=== PATIENT | female | born 1975 | race American Indian/Alaskan Native ===

== ENCOUNTER 2018-08-08 09:43 | Inpatient (IN) | payer OTHER ==
[2018-08-08] MEDS ORDERED: BICITRA PO SCH (10:47)
[2018-08-08] MEDS ORDERED: PEPCID IV SCH (10:47)
[2018-08-08] MEDS ORDERED: REGLAN IV SCH (10:47)
[2018-08-08] MEDS: LACTATED RINGERS 1,000 ML IV SCH ×2 (10:59→11:31)
[2018-08-08] MEDS ORDERED: PITOCin/NS 20 UNIT/1000ML DRIP 20 UNITS/1,000 ML BAG IV SCH ×2 (11:00→12:00)
[2018-08-08 11:04] LABS: Basophils # (Auto) 0.1 K/mm3 (0.0-0.1); Basophils % (Auto) 0.7 % (0.0-1.8); Eosinophils # (Auto) 0.1 K/mm3 (0.0-0.4); Eosinophils % (Auto) 1.3 % (0.0-4.3); Hematocrit 34.2 % (30.3-42.9); Hemoglobin 11.1 gm/dl (10.1-14.3); Lymphocytes % (Auto) 19.7 % (13.4-35.0); Mean Corpuscular HGB Conc 32 % (30-34); Mean Corpuscular Volume 89 fl (79-97); Monocytes # (Auto) 0.9 K/mm3 (0.0-0.8); Monocytes % (Auto) 8.4 % (0.0-7.3); Platelet Count 379 K/mm3 (140-440); Red Blood Count 3.84 M/mm3 (3.65-5.03); Red Cell Distribution Width 15.2 % (13.2-15.2)
[2018-08-08] MEDS ORDERED: SUBLIMAZE ONE (11:21)
[2018-08-08] MEDS ORDERED: ASTRAMORPH PF 10MG/10ML ONE (11:21)
--- NOTE | 2018-08-08 11:23 | History and Physical Report ---
History of Present Illness Date of examination: 08/08/18 Date of admission: 08/08/18 09:43 Chief complaint: previous History of present illness: 43y/o @ 38+2 weeks presents for a repeat delivery secondary to GDM and a prior classical . course also complicated by AMA, three prior deliveries, history of tobacco abuse, and +HSV II however the patient denies any recent prodrome. It was the recommendation from [facility] that the patient be delivered prior to 39 weeks. She denies leakage of fluid or vaginal bleeding. 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 Social history: , smoking - Obstetrical History Expected Date of Delivery: 08/20/18 Actual Gestation: 38 Week(s) 2 Day(s) : 6 Para: 3 Hx # Term Pregnancies: 3 Number of Pregnancies: 0 Spontaneous Abortions: 2 Induced : 0 Number of Living Children: 3 Medications and Allergies Allergies Allergy/AdvReac Type Severity Reaction Status Date / Time sumatriptan [From Imitrex] Allergy Anaphylaxis Verified 08/08/18 09:56 Home Medications Medication Instructions Recorded Confirmed Last Taken Type Vit,Calc76/Iron/Folic 1 each PO DAILY 08/08/18 08/08/18 Unknown History [Pnv 29-1 Tablet] Active Meds: Active Medications Citric Acid/Sodium Citrate (Bicitra) 30 ml PO ONCE OMID Stop: 08/08/18 23:48 Famotidine (Pepcid) 20 mg IV ONCE OMID Stop: 08/08/18 23:48 Lactated Ringer's (Lactated Ringers) 1,000 mls @ 2,250 mls/hr IV PREOP OMID Stop: 08/09/18 11:27 Last Admin: 08/08/18 10:59 Dose: 2,250 mls/hr Documented by: Oxytocin/Sodium Chloride (Pitocin/Ns 20 Unit/1000ml Drip) 20 units in 1,000 mls @ 0 mls/hr IV TITR OMID Metoclopramide HCl (Reglan) 10 mg IV ONCE OMID Review of Systems All systems: negative Genitourinary: no vaginal bleeding, no leakage of fluid, no contractions - Vital Signs Vital signs: Vital Signs Pulse BP 103 H 106/67 08/08/18 10:09 08/08/18 10:09 Temp Pulse Resp BP Pulse Ox 98.6 F 103 H 20 106/67 08/08/18 10:10 08/08/18 10:09 08/08/18 10:10 08/08/18 10:09 - Physical Exam Breasts: Positive: deferred Cardiovascular: Regular rate Lungs: Positive: Clear to auscultation Abdomen: Positive: normal appearance Results Result Diagrams: 08/08/18 10:45 Abnormal lab results 08/08/18 Range/Units 10:45 [place] % (Auto) 8.4 H (0.0-7.3) % [place] # 0.9 H (0.0-0.8) K/mm3 All other labs normal. Assessment and Plan - Patient Problems (1) History of classical section Current Visit: Yes Status: Acute Plan to address problem: proceed with repeat delivery patient declines tubal ligation (2) Advanced maternal age (AMA), 40 years or greater Current Visit: Yes Status: Acute (3) Gestational diabetes Current Visit: Yes Status: Acute
[2018-08-08] MEDS ORDERED: ZOFRAN IV PRN ×2 (11:29→13:12)
[2018-08-08] MEDS ORDERED: MORPHINE IV PRN (11:29)
[2018-08-08] MEDS ORDERED: IBUPROFEN PO PRN (11:29)
[2018-08-08] MEDS ORDERED: TUCKS PAD TP PRN (11:29)
[2018-08-08] MEDS ORDERED: NARCAN 0.4 MG/1 ML IV PRN ×2 (11:29→13:12)
[2018-08-08] MEDS ORDERED: LANSINOH TP PRN (11:29)
[2018-08-08] MEDS ORDERED: PERCOCET 5/325 PO PRN (11:29)
[2018-08-08] MEDS ORDERED: ANCEF/STERILE WATER 2 GM/20 ML IV ONE (12:00)
[2018-08-08] MEDS ORDERED: D5LR 1,000 ML IV SCH (12:00)
[2018-08-08] MEDS ORDERED: SODIUM CHLORIDE FLUSH SYRINGE 10 ML IV SCH ×2 (12:00→14:00)
[2018-08-08] MEDS ORDERED: DIPRIVAN 10 MG/ML IV ONE (12:13)
[2018-08-08] MEDS ORDERED: WATER FOR IRRIG STERILE IR ONE (12:20)
[2018-08-08] MEDS ORDERED: NACL 0.9% IR ONE (12:20)
[2018-08-08] MEDS ORDERED: QUELICIN ONE (12:31)
[2018-08-08] MEDS ORDERED: ZOFRAN ONE (12:32)
[2018-08-08] MEDS ORDERED: TORADOL ONE (12:32)
[2018-08-08] MEDS ORDERED: ZEMURON IV ONE (12:32)
[2018-08-08] MEDS ORDERED: BLOXIVERZ ONE (12:36)
[2018-08-08] MEDS ORDERED: ROBINUL ONE (12:36)
--- NOTE | 2018-08-08 13:11 | Anesthesia Consultation ---
Anesthesia Consult and Med Hx - Airway Anesthetic Teeth Evaluation: Good ROM Head & Neck: Adequate Mental/Hyoid Distance: Adequate Mallampati Class: Class III Intubation Access Assessment: Good - Pulmonary Exam CTA: Yes - Cardiac Exam Cardiac Exam: RRR - Pre-Operative Health Status ASA Pre-Surgery Classification: ASA2 Proposed Anesthetic Plan: General, Spinal - Pulmonary Hx Smoking: Yes Hx Asthma: No Hx Respiratory Symptoms: No SOB: No COPD: No Home Oxygen Therapy: No Hx Pneumonia: No Hx Sleep Apnea: No - Cardiovascular System Hx Hypertension: No Hx Coronary Artery Disease: No Hx Heart Attack/AMI: No Hx Angina: No Hx Percutaneous Transluminal Coronary Angioplasty (PTCA): No Hx Cardia Arrhythmia: No Hx Pacemaker: No Hx Internal Defibrillator: No Hx Valvular Heart Disease: No Hx Heart Murmur: No Hx Peripheral Vascular Disease: No - Central Nervous System Hx Seizures: No Hx Psychiatric Problems: No - Endocrine Hx Renal Disease: No Hx End Stage Renal Disease: No Hx Hypothyroidism: No Hx Hyperthyroidism: No - Hematic Hx Anemia: No Hx Sickle Cell Disease: No - Other Systems Hx Alcohol Use: No
[2018-08-08] MEDS ORDERED: PHENERGAN PO PRN (13:12)
[2018-08-08] MEDS ORDERED: BENADRYL IV PRN (13:12)
[2018-08-08] MEDS ORDERED: PHENERGAN PR PRN (13:12)
[2018-08-08] MEDS ORDERED: DILAUDID IV PRN (13:12)
--- NOTE | 2018-08-08 13:12 | Anesthesia Day of Surgery ---
Anesthesia Day of Surgery - Day of Surgery Patient Examined: Yes Patient H&P Reviewed: Yes Patient is NPO: Yes Beta Blockers: No Cardiac Clearance: No Pulmonary Clearance: No Thiago's Test: N/A
--- NOTE | 2018-08-08 13:12 | Post Anesthesia Evaluation ---
- Post Anesthesia Evaluation Patient Participated: Yes Airway Patent: Yes Stable Respiratory Function: Yes Nausea/Vomiting: No Temp > 96.8F: Yes Pain Manageable: Yes Adequeate Hydration: Yes Anesthesia Complications: No Block Receding Appropriately: Yes Patient on Ventilator: No
[2018-08-08] MEDS: DILAUDID IV PRN ×2 (13:50→13:57)
[2018-08-08] MEDS ORDERED: fentaNYL-BUPIV 2 MCG/ML-0.125% 200 MCG/100 ML BAG EPIDURAL SCH (14:00)
--- NOTE | 2018-08-08 14:53 | Procedure Note ---
OB Delivery Note - Delivery Date of Delivery: 08/08/18 Surgeon: KARISSA SEGUNDO Estimated blood loss: other (700 mL) - Section Preop diagnosis: repeat Postop diagnosis: same section procedure: section, repeat low transverse Disposition: PACU Complications: none - Infant A at 1 minute: 5 at 5 minutes: 8 Gender: Female (weight 7 lbs. 8 oz.)
--- NOTE | 2018-08-08 14:54 | Operative Report ---
Operative Report Operative Report: Date of surgery: 08/08/2018 Preoperative diagnosis: at 38+2 weeks; gestational diabetes; prior classical delivery; Postoperative diagnosis: Same as above; pelvic adhesions Procedure: Repeat low transverse delivery and lysis of adhesions Surgeon: Juanita Herron M.D. Anesthesia: Gen. endotracheal anesthesia Estimated blood loss: 700 mL Findings: Liveborn female with Apgars of 5 and 8 weight 7 lbs. 8 oz. Indications: 43-year-old at 38+2 weeks course is complicated by gestational diabetes, prior classical delivery, and advanced maternal age. The patient is not a candidate for a vaginal delivery. Procedure: The patient was taken to the operating room and given regional anesthesia without complication. She was prepped and draped in a normal sterile fashion. Regional anesthesia was found not to be adequate and the patient had to be placed under general endotracheal anesthesia. A Pfannenstiel skin incision was made down to layer the fascia which was nicked in the midline extended laterally with the Bovie cautery. The superior aspect of the rectus fascia was grasped with Kevin clamps x2 and the rectus muscles off sharply. This was done in inferior fashion as well. The rectus muscle midline and peritoneum entered bluntly. There was evidence of multiple adhesions of the anterior aspect of the uterus to the anterior abdominal wall. Sharp and blunt dissection had to be used. An Zane retractor was then inserted. A bladder blade was placed. The vesicouterine peritoneum was then entered sharply with Metzenbaum scissors. A bladder flap was created digitally. It was noted that no parts could be identified or palpated in the lower uterine segment. A low transverse uterine incision was then made and extended digitally. There was clear fluid upon entry into the uterine cavity. An attempt was made to advance the head through the incision, however the feet presented and the infant was delivered in breech presentation. Pinard maneuver was performed on the upper extremites and the head was delivered with fundal pressure. The cord was clamped and cut x2 and was passed off to pediatrics. The placenta was then manually extracted. The uterus could not be exteriorized secondary to the extensive adhesions. The cavity was cleared of clots and debris. The uterine incision was then closed in a running locked fashion with 0 Vicryl additional imbricating stitch was applied for 2 layer closure. The pelvis was then copiously irrigated. The Zane retractor was then removed. Tisseel was placed over the uterine incision. The peritoneum was then reapproximated with 3-0 Vicryl incorporating the rectus muscle. The fascia was then closed with 0 Vicryl in a running fashion. The skin was then reapproximated with 3-0 Monocryl on a Leonard needle subcuticular fashion. Steri-Strips were placed across the incision and a Crede procedures performed at the end of the surgery. A pressure dressing was applied to the incision. The surgery productive of a liveborn female infant with Apgars of 5 and 8 weight 7 lbs. 8 oz. The patient was successfully extubated. The patient was taken to the recovery room in stable condition. All sponge laps and needle counts correct x2.
[2018-08-08] MEDS: TORADOL IV PRN (21:18)
[2018-08-08] MEDS ORDERED: LACTATED RINGERS 1,000 ML IV SCH (23:45)
[2018-08-09 00:21] LABS: Hematocrit 27.3 % (30.3-42.9); Hemoglobin 8.9 gm/dl (10.1-14.3)
[2018-08-09] MEDS: TORADOL IV PRN (05:25)
--- NOTE | 2018-08-09 07:23 | Progress Note ---
Assessment and Plan A/P POD 1 s/p repeat csec dpomg well hgb 11-9 acute anemia on iron routine Postop orders Subjective - Subjective Date of service: 08/09/18 Principal diagnosis: s/p repeat csec Patient reports: appetite normal, voiding normally, pain well controlled, flatus, ambulating normally [place]: doing well Objective - Vital Signs Latest vital signs: Vital Signs Temp Pulse Resp BP BP Pulse Ox 08/09/18 05:25 18 08/08/18 23:27 18 08/08/18 22:43 76 91/52 08/08/18 21:56 98.7 F 76 18 89/51 95 08/08/18 21:18 18 08/08/18 17:20 98.0 F 102 H 20 96/49 97 08/08/18 14:40 98.2 F 87 18 103/51 95 08/08/18 14:27 20 08/08/18 14:20 20 08/08/18 14:04 98.5 F 95 H 20 109/52 98 08/08/18 13:57 20 08/08/18 13:50 20 08/08/18 13:43 78 20 110/57 98 08/08/18 13:29 85 20 114/58 98 08/08/18 13:16 86 16 112/54 97 08/08/18 13:11 88 115/50 95 08/08/18 13:06 96 H 16 106/65 99 08/08/18 13:01 97.5 F L 104 H 16 107/51 100 08/08/18 10:10 98.6 F 20 08/08/18 10:09 103 H 106/67 Intake and Output 08/08/18 08/08/18 08/09/18 15:59 23:59 07:59 Intake Total 2800 300 Output Total 893 883 2293 Balance 2500 -500 -900 Intake: IV 2800 Lactated Ringers 1,000 ml 1000 @ 2250 mls/hr IV PREOP [facility] Rx#:[id number] Intake, Free Water 300 Output: Urine 307 034 5699 Indwelling Catheter 150 500 800 Void 400 Other: Total, Output Amount 150 300 400 Weight 81.193 kg Estimated Blood Loss 700 - Exam Breasts: Present: normal Cardiovascular: Present: Regular rate, Normal S1 Lungs: Present: Clear to auscultation, Normal air movement Abdomen: Present: normal appearance, soft, normal bowel sounds. Absent: distention, tenderness, guarding Vulva: both: normal Uterus: Present: normal, firm, fundal height below umbilicus. Absent: bogginess, tenderness Extremities: Present: normal Deep Tendon Reflex Grade: Normal +2 Incision: Present: normal, dry, dressed - Labs Labs: Abnormal lab results 08/08/18 08/08/18 Range/Units 10:45 23:38 Hgb 8.9 L (10.1-14.3) gm/dl Hct 27.3 L D (30.3-42.9) % [place] % (Auto) 8.4 H (0.0-7.3) % [place] # 0.9 H (0.0-0.8) K/mm3
--- NOTE | 2018-08-10 08:52 | Progress Note ---
Assessment and Plan - Patient Problems (1) History of classical section Current Visit: Yes Status: Acute Plan to address problem: routine postop discharge home (2) Advanced maternal age (AMA), 40 years or greater Current Visit: Yes Status: Acute (3) Gestational diabetes Current Visit: Yes Status: Acute Subjective - Subjective Date of service: 08/10/18 Principal diagnosis: s/p repeat csec Interval history: Patient without complaints. Tolerating regular diet. Pain well controlled Patient reports: appetite normal, voiding normally, pain well controlled : doing well Objective - Vital Signs Latest vital signs: Vital Signs Temp Pulse Resp BP BP Pulse Ox 08/10/18 08:30 98.7 F 97 H 18 93/56 98 08/10/18 00:00 20 08/09/18 23:47 98.2 F 78 20 97/62 08/09/18 15:43 98.7 F 75 20 97/49 97 08/09/18 12:24 98.3 F 94 H 20 109/60 96 Intake and Output 08/09/18 08/10/18 08/10/18 22:59 06:59 14:59 Intake Total 480 960 360 Balance 480 960 360 Intake: Oral 480 Intake, Free Water 960 360 Other: Total, Intake Amount 480 # Voids Void 1 2 1 - Exam Abdomen: Present: normal appearance, soft Incision: Present: normal
--- NOTE | 2018-08-10 08:53 | Discharge Summary ---
Providers - Providers Date of Admission: 08/08/18 09:43 Date of discharge: 08/10/18 Attending physician: ALMA CARMONA MD Primary care physician: ALMA CARMONA MD Hospitalization Reason for admission: section Delivery: Procedure: section, repeat low transverse Incision: normal Discharge diagnosis: IUP at term delivered Hospital course: Patient admitted for scheduled rltcs. Routine postop Condition at discharge: Good Disposition: DC-01 TO HOME OR SELFCARE - Discharge Diagnoses (1) History of classical section Status: Acute (2) Advanced maternal age (AMA), 40 years or greater Status: Acute (3) Gestational diabetes Status: Acute Plan - Discharge Medications Prescriptions: Docusate Sodium [Colace] 100 mg PO BID PRN #60 capsule PRN Reason: Constipation Ibuprofen [Motrin] 800 mg PO Q8HR PRN #60 tablet PRN Reason: Pain, Mild (1-3) oxyCODONE /ACETAMINOPHEN [Percocet 5/325] 1 tab PO Q6HR PRN #30 tablet PRN Reason: Pain - Provider Discharge Summary Activity: no sex for 6 weeks, no heavy lifting 4 weeks, no strenuous exercise Diet: routine Instructions: routine Additional instructions: [] Smoking cessation referral if applicable(refer to patient education folder for contact #) [] Refer to [facility] Booklet Call your doctor immediately for: * Fever > 100.5 * Heavy vaginal bleeding ( >1 pad per hour) * Severe persistent headache * Shortness of breath * Reddened, hot, painful area to leg or breast * Drainage or odor from incision. * Keep incision clean and dry at all times and follow doctor's instructions regarding bathing/showering schedule followup in 2 weeks - Follow up plan
[2018-08-10 13:11] VITALS: BP 109/67
== END 2018-08-10 14:10 | disposition home or self-care (01) | DRG 788 ==
LOC: APU 09:43 → OB 14:54
PROVIDERS: ADMIT Obstetrics & Gynecology; ATTEND Obstetrics & Gynecology
PROC: 10D00Z1 Extraction of Products of Conception, Low, Open Approach (ICD-10-PCS; principal; 2018-08-08)
PROC: 0UN90ZZ Release Uterus, Open Approach (ICD-10-PCS; 2018-08-08)
DX: O34.212 Maternal care for vertical scar from previous cesarean delivery (principal); O24.420 Gestational diabetes mellitus in childbirth, diet controlled; N73.6 Female pelvic peritoneal adhesions (postinfective); Z3A.38 38 weeks gestation of pregnancy; Z37.0 Single live birth; Z88.8 Allergy status to other drugs, medicaments and biological substances; O99.62 Diseases of the digestive system complicating childbirth; O90.81 Anemia of the puerperium; D64.9 Anemia, unspecified
CPT/HCPCS: 36415; 59025; 82962; 85014; 85018; 85025; 86850; 86900; 86901; 96360; 96374; 96375; G0378; J0330; J0690; J1170; J1885; J2270; J2274; J2405; J2590; J2704; J2710; J2765; J3010; J7120